=== PATIENT | male | born 1995 | race Two or more races ===

== ENCOUNTER 2020-07-09 20:42 | Emergency (ER) | payer SELFPAY ==
[~2020-07-09] VITALS: Ht 180.3 cm; Wt 81.6 kg
[2020-07-09] MEDS ORDERED: predniSONE 20 MG TAB PO ONE (20:45)
[2020-07-09 21:52] VITALS: BP 118/80
[2020-07-09] MEDS ORDERED: methylPREDNISolone SOD SUCC 40 MG/ML VL IM ONE (23:30)
== END 2020-07-10 01:03 | disposition home or self-care (01) ==
LOC: ER 20:42
DX: R23.8 Other skin changes (principal)
CPT/HCPCS: 96372; 99283; J2920; J7512